=== PATIENT | male | born 1975 | race Caucasian/White ===

== ENCOUNTER 2017-06-29 08:43 | Emergency (ER) | payer SELFPAY ==
[~2017-06-29] VITALS: Ht 177.8 cm; Wt 90.0 kg
[2017-06-29] MEDS ORDERED: HYDROcodone/APAP 7.5-325MG/15ML UDC PO STA (10:17)
[2017-06-29] MEDS ORDERED: HYDROcodone/APAP 7.5-325MG/15ML UDC ONE (10:20)
[2017-06-29] MEDS ORDERED: DEXAMETHASONE 4 MG TABLET ONE (10:20)
[2017-06-29] MEDS ORDERED: DEXAMETHASONE 4 MG TABLET PO ONE (10:30)
[2017-06-29 10:49] VITALS: BP 135/93
== END 2017-06-29 10:51 | disposition home or self-care (01) ==
LOC: ED 10:45
DX: J02.9 Acute pharyngitis, unspecified (principal); R51 Headache
CPT/HCPCS: 99283